=== PATIENT | male | born 1950 | race Caucasian/White ===

== ENCOUNTER 2018-09-27 10:58 | Emergency (ER) | payer BC, MEDICARE ==
[2018-09-27 11:48] VITALS: BP 147/91
--- NOTE | 2018-09-27 12:35 | UC ---
FLU HPI - HPI Summary HPI Summary: Pt presents with c/o gradual onset of weakness, dizziness, weight loss and generalized malaise. Pt reports that he has been "out of his medicine" for over 3 months and must wait until October 22 for prescriptions to be delivered. Pt is accompanied by son. Pt states he is anxious and does not feel well. - History of Current Complaint Chief Complaint: UCGeneralIllness Stated Complaint: SHAKY/MUSCLE WEAKNESS Time Seen by Provider: 09/27/18 11:28 Hx Obtained From: Patient Onset/Duration: Gradual Onset, Lasting Weeks, Still Present Severity Currently: Mild Severity Initially: Mild Pain Intensity: 0 Pain Scale Used: 0-10 Numeric Associated Signs & Symptoms: Positive: Negative - Risk Factors Influenza Risk Factors: Age 65 y/o or Older - Allergy/Home Medications Allergies/Adverse Reactions: Allergies Allergy/AdvReac Type Severity Reaction Status Date / Time No Known Allergies Allergy Verified 09/27/18 11:24 Home Medications: Home Medications Albuterol 2.5MG/3ML (0.083%)* [Ventolin 2.5 MG/3 ML NEB.VANESSA*] 2.5 mg INH Q6H PRN 09/27/18 [History Confirmed 09/27/18] Albuterol HFA INHALER* [Ventolin HFA Inhaler*] 2 puff INH Q4H PRN 09/27/18 [ History Confirmed 09/27/18] Aspirin 81 mg CHEW TAB* [Aspirin Low Dose TAB*] 81 mg PO DAILY 09/27/18 [ History Confirmed 09/27/18] Cholecalciferol CAP/TAB(NF) [Vitamin D3 CAP/TAB (NF)] 5,000 unit PO DAILY [History Confirmed 09/27/18] Diclofenac Sodium 75 mg PO DAILY PRN 09/27/18 [History Confirmed 09/27/18] Dulaglutide [Trulicity] 1.5 mg SQ WEEKLY 09/27/18 [History Confirmed 09/27/18] Fexofenadine (NF) [Riddhi 180 (NF)] 180 mg PO DAILY 09/27/18 [History Confirmed 09/27/18] Losartan TAB* [Cozaar TAB*] 50 mg PO DAILY 09/27/18 [History Confirmed 09/27/18] Multivitamin [Multivitamins] 1 cap PO DAILY 09/27/18 [History Confirmed 09/27/18 ] Omeprazole CAP(NF) [PriLOSEC CAP(NF)] 10 mg PO DAILY 09/27/18 [History Confirmed 09/27/18] Tiotropium Brom/Olodaterol(NF) [Stiolto Respimat Inh [place] (60 puff)(NF)] 2 puff INH DAILY 09/27/18 [History Confirmed 09/27/18] Valsartan TAB* [Diovan TAB*] 160 mg PO DAILY 09/27/18 [History Confirmed ] glipiZIDE TAB* [Glucotrol TAB*] 10 mg PO DAILY 09/27/18 [History Confirmed 09/27] metFORMIN* [Glucophage 500 MG TAB *] 500 mg PO BID 09/27/18 [History Confirmed 09/27/18] PMH/Surg Hx/FS Hx/Imm Hx Previously Healthy: No Endocrine History: Diabetes Cardiovascular History: Cardiac Disease, Hypertension - Surgical History Surgical History: Yes Surgery Procedure, Year, and Place: knee biilateral - Family History Known Family History: Positive: Cardiac Disease - Social History Occupation: Retired Lives: Alone Alcohol Use: None Substance Use Type: None Smoking Status (MU): Former Smoker Have You Smoked in the Last Year: No When Did the Patient Quit Smoking/Using Tobacco: 45 years ago Review of Systems All Other Systems Reviewed And Are Negative: Yes Constitutional: Positive: Fatigue Skin: Positive: Negative Eyes: Positive: Negative ENT: Positive: Negative Respiratory: Positive: Negative Cardiovascular: Positive: Palpitations Gastrointestinal: Positive: Negative Genitourinary: Positive: Frequency Motor: Positive: Weakness Neurovascular: Positive: Negative Musculoskeletal: Positive: Negative Neurological: Positive: Negative Psychological: Positive: Anxious Is Patient Immunocompromised?: No Physical Exam Triage Information Reviewed: Yes Completion Of Physical Exam Limited Due To: Dementia - possible Appearance: Well-Appearing - poor historian Vital Signs: Initial Vital Signs Temp 99.6 F 09/27/18 11:32 Pulse 121 09/27/18 11:32 Resp 18 09/27/18 11:32 BP 147/91 09/27/18 11:32 Pulse Ox 96 09/27/18 11:32 Vital Signs Reviewed: Yes Eye Exam: Normal ENT Exam: Normal Dental Exam: Other - poor dentition Dental: Positive: Gross Decay/Caries @ Neck exam: Normal Respiratory Exam: Normal Cardiovascular: Positive: Tachycardia Abdominal Exam: Normal Abdomen Description: Positive: Nontender Musculoskeletal Exam: Normal Neurological Exam: Normal Psychological Exam: Normal Skin Exam: Normal Flu Course/Dx - Course Course Of Treatment: I disucussed with the pt that he needed to go directly to the closest ER for further evaluation and treatment. Pt verbalized understanding. Pt did not seem to be a good historian and indicated to nurse upon discharge that he needed to go "to the cell phone store" before going to the emergency room. Pt was advised to go directly to ER. [facility] Er called and I spoke with DR. Alba who accepted pt. - Differential Dx/Diagnosis Differential Diagnosis/HQI/PQRI: Other - hyperglycemia tachycardia Provider Diagnosis: Hyperglycemia, unspecified, Tachycardia - Physician Notifications Discussed Patient Care With: DR. Prabhakar - accepted pt Discharge - Sign-Out/Discharge Documenting (check all that apply): Patient Departure All imaging exams completed and their final reports reviewed: No Studies - Discharge Plan Condition: Stable Disposition: HOME-RECOMMEND TO ED Patient Education Materials: Diabetic Hyperglycemia (ED), Tachycardia (ED) Referrals: Katelin Dominguez MD [Primary Care Provider] - As Soon As Possible Additional Instructions: IT IS RECOMMENDED THAT YOU GO DIRECTLY TO THE CLOSEST EMERGENCY ROOM IMMEDIATELY UPON LEAVING THIS FACILITY. - Billing Disposition and Condition Condition: STABLE Disposition: Home-Recommend to ED
== END 2018-09-27 12:12 | disposition home health service (06) ==
LOC: UCCORT 10:58
DX: E11.65 Type 2 diabetes mellitus with hyperglycemia (principal); R00.0 Tachycardia, unspecified; Z79.84 Long term (current) use of oral hypoglycemic drugs; I10 Essential (primary) hypertension; I51.9 Heart disease, unspecified; Z87.891 Personal history of nicotine dependence
CPT/HCPCS: 93005; 99202; G0463